=== PATIENT | female | born 1960 | race Caucasian/White ===

== ENCOUNTER 2016-08-26 06:26 | Observation (INO) | payer BC ==
[~2016-08-26] VITALS: Ht 177.8 cm; Wt 115.3 kg
[2016-08-26] VITALS (11 sets, daily range): BP systolic 110–127; BP diastolic 67–80
[2016-08-26] MEDS ORDERED: LOSA1TAB16 PO (06:44)
[2016-08-26] MEDS ORDERED: FLUT9.9S NS (06:45)
[2016-08-26] MEDS ORDERED: BUDE10.2 IH (06:45)
[2016-08-26] MEDS ORDERED: OMEP20TA63 PO (06:45)
[2016-08-26] MEDS ORDERED: IV RINGERS,LACTATED 1000ML 1,000 ML IV SCH ×2 (07:00→10:30)
[2016-08-26] MEDS ORDERED: fentaNYL PF VIAL 100 MCG/2 ML VIAL IV PRN (07:00)
[2016-08-26] MEDS ORDERED: PROCHLORPERAZINE 10 MG/2 ML VIAL. IV PRN (07:00)
[2016-08-26] MEDS ORDERED: HYDROmorphone 2 MG/ML VIAL IV PRN (07:00)
[2016-08-26] MEDS ORDERED: ONDANSETRON PF 4 MG/2 ML VIAL. IV PRN ×2 (07:00→09:45)
[2016-08-26] MEDS ORDERED: MORPHINE SULFATE 2 MG/ML DISP.SYRIN. IV PRN (07:00)
[2016-08-26] MEDS ORDERED: LIDOCAINE 1% 1 ML SYRINGE. ID PRN (07:00)
[2016-08-26] MEDS ORDERED: BUPIVACAINE-EPI 0.5%-1:200000 50 ML VIAL. ONE (07:16)
[2016-08-26] MEDS ORDERED: PROPOFOL 20 ML IV ONE (07:29)
[2016-08-26] MEDS ORDERED: LIDOCAINE 2% PF Vial for OR 5 ML VIAL. ONE (07:29)
[2016-08-26] MEDS ORDERED: MIDAZOLAM HCL/PF 2 MG/2 ML VIAL. ONE (07:29)
[2016-08-26] MEDS ORDERED: DESFLURANE 61 TO 120 MINUTES IH ONE (07:29)
[2016-08-26] MEDS ORDERED: DEXAMETHASONE SOD PHOS 20 MG/5 ML VIAL. ONE (07:29)
[2016-08-26] MEDS ORDERED: ONDANSETRON PF 4 MG/2 ML VIAL. ONE (07:29)
[2016-08-26] MEDS ORDERED: ROCURONIUM 50 MG/5 ML VIAL. ONE (07:30)
[2016-08-26] MEDS ORDERED: fentaNYL PF VIAL 100 MCG/2 ML VIAL ONE (07:30)
--- NOTE | 2016-08-26 07:43 | PDOC ---
SURGICAL PROGRESS NOTE Subjective 56 yo F with recurrent VIH TO OR for repair R/B/A d/w pt. Office note H&P reviewed and unchanged. Vital Signs Vital Signs Date Time Temp Pulse Resp B/P (MAP) Pulse Ox O2 Delivery O2 Flow Rate FiO2 08/26/16 06:53 98.1 85 96 98.1 08/26/16 06:50 20 150/89 Room Air ANNETTE NEVAREZ MD August 26, 2016 07:43
[2016-08-26] MEDS ORDERED: KETOROLAC 30 MG/ML INJ FOR OR. INJ ONE (08:36)
[2016-08-26] MEDS: fentaNYL PF VIAL 100 MCG/2 ML VIAL IV PRN ×2 (09:31→09:40)
[2016-08-26] MEDS ORDERED: 0.9 % SODIUM CHLORIDE 10 ML DISP.SYRIN. IV PRN (09:45)
--- NOTE | 2016-08-26 09:45 | PDOC ---
BRIEF OPERATIVE NOTE Pre-Op Diagnosis VIH Post-Op Diagnosis same Procedure Performed VIH repair Surgeon Axel Anesthesia Type: General, Local Blood Loss 10 IV Fluid 800 Specimens Obtained hernia sac Findings no viscera involved Complications none Additional Remarks [id number] ANNETTE NEVAREZ MD August 26, 2016 09:45
--- NOTE | 2016-08-26 10:45 | OP ---
DATE OF SURGERY: 08/26/2016 REFERRING PHYSICIANS: Dr. Yoni Calix. Thank you for the consult. PREOPERATIVE DIAGNOSIS: Ventral incisional hernia. POSTOPERATIVE DIAGNOSIS: Ventral incisional hernia. PROCEDURE: Ventral incisional hernia repair. SURGEON: Jr Nevarez MD ESTIMATED BLOOD LOSS: 10 mL. FLUIDS: 800 mL. COMPLICATIONS: None. FINDINGS: Ventral incisional hernia in the epigastric area associated with the previous transverse incision, complete disruption of the mesh, no viscera involved. INDICATIONS: A 56-year-old female who presents with complaints of recurrent ventral incisional hernia with abdominal pain and bulge. She denies any obvious obstructive symptoms but certainly notes some pain in this area. She has had previous incisional hernia repair with mesh. Given her pain, surgical repair is indicated. The patient was informed of the risks, benefits, and alternatives of procedure, risks including but not limited to bleeding, infection, damage to surrounding structures, risk of anesthesia, risk of hernia recurrence, mesh will not be used secondary to the risk of associated complications. Her history of lung disease and obesity does make risk of recurrence higher, as well as previous repair. The patient appears to understand. Her insightful questions were answered, and she agrees to proceed. DESCRIPTION OF PROCEDURE: After obtaining informed consent, the patient was taken to the Operating Room, induced under general endotracheal anesthetic. The patient was prepped and draped in the usual fashion in the anterior abdominal wall. The hernia was palpable. A transverse incision was made overlying this using electrocautery. The previous scar had been excised. Subcutaneous tissue was divided with electrocautery. Hernia sac was dissected down to the level of fascia circumferentially. The hernia sac was sharply opened and completely excised. There was a component of mesh that was completely disrupted and contained within the mesh hernia. The hernia sac was excised and sent to Pathology for evaluation. The underlying viscera was completely unremarkable. There was no evidence of bowel injury, and the contents were primarily omentum. The fascia was cleared off circumferentially for a few centimeters. The fascia was then reapproximated in a transverse [id number] fashion using multiple interrupted 0 Vicryl stitches. A 0.5% Marcaine with epinephrine was injected in the surrounding tissues. Subcutaneous tissue was reapproximated with 3-0 Vicryl in 2 layers. Skin incision was reapproximated with 4-0 Monocryl in subcuticular fashion. Sterile dressing was placed over all wounds. The patient tolerated the procedure well and was discharged to Recovery Room in stable condition. All counts were correct. There were no immediate complications. JR NEVAREZ MD DR: ASIA/norris JOB#: [id number] / [id number] Dr. Yoni Rocha
[2016-08-26] MEDS: HYDROcodone/APAP 5/325MG 1 TAB TABLET PO PRN ×2 (11:40→16:21)
[2016-08-26] MEDS: ALBUTEROL SULFATE 2.5 MG/3 ML NEBU. NEB SCH ×3 (12:00→19:25)
[2016-08-26] MEDS: LOSARTAN POTASSIUM 50 MG TABLET. PO SCH (12:30)
[2016-08-26] MEDS: hydroCHLOROthiazide 12.5 MG CAPSULE PO SCH (12:30)
[2016-08-26] MEDS: FLUTICASONE 50MCG/NASAL SPRAY 16GM BOTTLE. NS SCH (12:30)
[2016-08-26] MEDS: PANTOPRAZOLE 40 MG TABLET.DR. PO SCH (13:13)
[2016-08-26] MEDS: MORPHINE SULFATE 2 MG/ML DISP.SYRIN. IV PRN ×2 (18:44→23:27)
[2016-08-26] MEDS: BUDESONIDE 0.5 MG/2 ML NEBU. NEB SCH (19:25)
[2016-08-26] MEDS: DOCUSATE SODIUM 100 MG CAPSULE. PO SCH (20:46)
[2016-08-26] MEDS ORDERED: NON FORMULARY ITEM (Budesonide/Formoterol Fumarate (Symbicort 160-4.5 Mcg Inhaler) 2 PUFF) IH SCH (21:00)
[2016-08-27 03:00] VITALS: BP 117/74
[2016-08-27] MEDS: MORPHINE SULFATE 2 MG/ML DISP.SYRIN. IV PRN ×2 (04:59→09:14)
[2016-08-27 07:00] VITALS: BP 112/76
[2016-08-27] MEDS: BUDESONIDE 0.5 MG/2 ML NEBU. NEB SCH (07:58)
[2016-08-27] MEDS: ALBUTEROL SULFATE 2.5 MG/3 ML NEBU. NEB SCH ×2 (07:58→11:47)
[2016-08-27] MEDS ORDERED: ENOXAPARIN 40 MG/0.4 ML SYRINGE. SQ SCH (09:00)
[2016-08-27] MEDS ORDERED: NON FORMULARY ITEM (Losartan/Hydrochlorothiazide (Losartan-Hctz 50-12.5 Mg Tab) 1 TAB) PO SCH (09:00)
[2016-08-27] MEDS: hydroCHLOROthiazide 12.5 MG CAPSULE PO SCH (09:09)
[2016-08-27] MEDS: LOSARTAN POTASSIUM 50 MG TABLET. PO SCH (09:09)
[2016-08-27] MEDS: PANTOPRAZOLE 40 MG TABLET.DR. PO SCH (09:09)
[2016-08-27] MEDS: DOCUSATE SODIUM 100 MG CAPSULE. PO SCH (09:09)
[2016-08-27] MEDS: FLUTICASONE 50MCG/NASAL SPRAY 16GM BOTTLE. NS SCH (09:10)
--- NOTE | 2016-08-27 09:50 | PDOC ---
SURGICAL PROGRESS NOTE Subjective tolerating diet ambulating pain managed no nausea Vital Signs Vital Signs Date Time Temp Pulse Resp B/P (MAP) Pulse Ox O2 Delivery O2 Flow Rate FiO2 08/27/16 09:14 Nasal Cannula 08/27/16 09:09 70 112/76 08/27/16 07:35 92 2.0 08/27/16 07:00 98.2 18 98.2 I&O Intake and Output 08/27/16 07:00 Intake Total 1350 ml Output Total 950 ml Balance 400 ml Intake Oral 300 ml IV Total 1050 ml Output Urine Total 950 ml # Voids 4 General: Alert, Oriented X3, Cooperative, No acute distress Abdomen: Soft, Other (ND, incision c/d/i, no erythema) Assessment/Plan s/p VIH dc 02 plan home today Problems: ANI ARVIZU APRN August 27, 2016 09:50
[2016-08-27] MEDS ORDERED: OXYC-323 PO (09:53)
[2016-08-27 11:00] VITALS: BP 114/62
--- NOTE | 2016-08-27 13:07 | PDOC3 ---
Discharge Summary* Date of Admission: August 26, 2016 Date of Discharge: August 27, 2016 Admitting Diagnosis Ventral hernia Final Diagnosis Ventral hernia CONSULTS none Procedures Ventral hernia repair Brief Hospital Course Ms. Galvez is a 56 old female who presented with hernia and underwent repair. Postoperatively tolerating diet, ambulating, urinating and pain managed on oral medications. Ready for discharge home Disposition/Orders: D/C to Home CONDITION AT DISCHARGE: Stable Diet: Regular Scheduled Budesonide/Formoterol Fumarate (Symbicort 160-4.5 Mcg Inhaler), 2 PUFF IH BID, ( Reported) Fluticasone Propionate (Flonase Allergy Relief), 2 SPRAYS NS DAILY, (Reported) Losartan/Hydrochlorothiazide (Losartan-Hctz 50-12.5 Mg Tab), 1 TAB PO DAILY, ( Reported) Omeprazole Magnesium (Prilosec Otc), 1 TAB PO DAILY, (Reported) Oxycodone/Apap 5-325 (Percocet 5-325 Mg Tablet), 1-2 TAB PO Q4-6HRS FOLLOW UP APPOINTMENT: 2 weeks Time Spent Total time spent with patient [] minutes for coordination of care, counseling, and education. ANI ARVIZU APRN August 27, 2016 13:07
[2016-08-27] MEDS: HYDROcodone/APAP 5/325MG 1 TAB TABLET PO PRN (13:10)
--- NOTE | 2016-08-28 15:45 | PATHOLOGY ---
PATHOLOGY REPORT * * * * * * * * FINAL DIAGNOSIS: Segment of fibromembranous and fibroadipose tissue, ventral incisional hernia repair: - Hernia sac. REPORT ELECTRONICALLY SIGNED BY: Jesse Botello M.D. DATE/TIME: 08/28/2016 15:45 * * * * * * * * GROSS PATHOLOGY: Received in formalin labeled "Stephanie Galvez hernia sac," is a segment of fibroadipose tissue measuring 11.2 x 6.1 x 3.4 cm with attached white-brown mesh measuring 6.3 x 5.5 x 0.2 cm (which is encased in adipose tissue). No nodules or lesions are identified. Data Examination Clerk tissue is submitted in cassette A1. (CAA; 08/27/2016) INITIAL CPT CODE(S): A; 27771 Professional services performed [place] [email or web address] [place] [address] Technical services performed by [facility] at [address] [place] [address]. SPECIMEN(S) RECEIVED: A.Hernia sac CLINICAL HISTORY: Ventral incisional hernia PATIENT: STEPHANIE GALVEZ /AGE: 306/27/1960 (Age: 56) PATIENT #: [id number] ALT CASE #: SPECIMEN COLLECTION DATE: 08/26/2016 SPECIMEN RECEIVED DATE: 08/26/2016 [facility] - [address] [place] [address] - PHONE: [phone] * * * END OF REPORT * * *
== END 2016-08-27 13:05 | disposition home or self-care (01) ==
LOC: SURG 06:26 → 4 NORTH 09:30
PROVIDERS: ADMIT Surgery; ATTEND Surgery
DX: K43.2 Incisional hernia without obstruction or gangrene (principal)
CPT/HCPCS: 49560; 88302; 94640; 94760; 96372; 96374; 96376; 97116; 97161; G0378; G0379; G8978; G8979; G8980; J0690; J1100; J1650; J1885; J2250; J2270; J2405; J2704; J3010; J7120

== ENCOUNTER → 2017-02-05 | Outpatient (CLI) | payer BC ==
[~2017-02-05] MED LIST: BUDE10.2 IH; FLUT9.9S NS; LOSA1TAB19 PO; OMEP20TA63 PO; OXYC-323 PO
--- NOTE | 2017-02-05 11:12 | RAD ---
DATE: 02/05/2017. EXAM: DIGITAL SCREEN BILAT W/CAD. HISTORY: Routine mammographic screening. COMPARISON: 11/28/2015. This study was interpreted with the benefit of Computerized Aided Detection (CAD). FINDINGS: The breast parenchyma shows scattered fibroglandular densities. Breast parenchyma level B.. There are no suspicious masses, microcalcifications or architectural distortion. Small nodules bilaterally have stable correlates on prior studies or have decreased. Scattered coarse calcifications are benign. BI-RADS CATEGORY: 2 BENIGN FINDING(S). RECOMMENDED FOLLOW-UP: 12M 12 MONTH FOLLOW-UP. PQRS compliance statement: Patient information was entered into a reminder system with a target due date 02/05/2018 for the next mammogram. Mammography is a sensitive method for finding small breast cancers, but it does not detect them all and is not a substitute for careful clinical examination. A negative mammogram does not negate a clinically suspicious finding and should not result in delay in biopsying a clinically suspicious abnormality. "Our facility is accredited by the [employer] Mammography Program."
== END | disposition home or self-care (01) ==
LOC: MAMMO 09:31
PROVIDERS: ATTEND Family Medicine
DX: Z12.31 Encounter for screening mammogram for malignant neoplasm of breast (principal)
CPT/HCPCS: G0202; 77067

== ENCOUNTER → 2018-02-24 | Outpatient (CLI) | payer BC ==
[~2018-02-24] MED LIST changes: -OXYC-323 PO; +OXYC1TAB15 PO
--- NOTE | 2018-02-25 08:44 | RAD ---
DATE: 02/24/2018 EXAM: MAMMO LAMAR SCREENING BILATERAL HISTORY: Routine screening COMPARISON: 02/15/2017 This study was interpreted with the benefit of Computerized Aided Detection (CAD). Breast Density: SCATTERED The breast parenchyma shows scattered fibroglandular densities. Breast parenchyma level B. FINDINGS: 2-D and 3-D tomosynthesis imaging was performed in CC and MLO projections. There are several small smooth nodules in both breasts, better demonstrated on the current tomosynthesis images. No enlarging nodule or spiculated mass is seen. There are scattered benign type calcifications. No suspicious microcalcifications have developed. IMPRESSION: Stable mammograms without evidence of malignancy. BI-RADS CATEGORY: 2 BENIGN FINDING(S) RECOMMENDED FOLLOW-UP: 12M 12 MONTH FOLLOW-UP PQRS compliance statement: Patient information was entered into a reminder system with a target due date for the next mammogram. Mammography is a sensitive method for finding small breast cancers, but it does not detect them all and is not a substitute for careful clinical examination. A negative mammogram does not negate a clinically suspicious finding and should not result in delay in biopsying a clinically suspicious abnormality. "Our facility is accredited by the [employer] Mammography Program."
== END | disposition home or self-care (01) ==
LOC: MAMMO 10:14
PROVIDERS: ATTEND Family Medicine
DX: Z12.31 Encounter for screening mammogram for malignant neoplasm of breast (principal)
CPT/HCPCS: 77063; 77067

== ENCOUNTER → 2019-03-02 | Outpatient (CLI) | payer BC ==
--- NOTE | 2019-03-03 10:25 | RAD ---
DATE: March 02, 2019 EXAM: DIGITAL SCREEN BILAT W/CAD HISTORY: Screening study. COMPARISON: 2015 through 2018 This study was interpreted with the benefit of Computerized Aided Detection (CAD). FINDINGS: Breast Density: SCATTERED The breast parenchyma shows scattered fibroglandular densities. Breast parenchyma level B.. Bilateral breast nodules are unchanged. There are no new dominant suspicious masses, suspicious microcalcifications or evidence of architectural distortion. IMPRESSION: No mammographic indicators for malignancy. BI-RADS CATEGORY: 2 BENIGN FINDING RECOMMENDED FOLLOW-UP: 12M 12 MONTH FOLLOW-UP PQRS compliance statement: Patient information was entered into a reminder system with a target due date March 03, 2020 for the next mammogram. Mammography is a sensitive method for finding small breast cancers, but it does not detect them all and is not a substitute for careful clinical examination. A negative mammogram does not negate a clinically suspicious finding and should not result in delay in biopsying a clinically suspicious abnormality. "Our facility is accredited by the [employer] Mammography Program." The patient's breast density may affect the ability of mammography to detect breast cancer. There are 4 categories of breast density, A, B, C and D. Breast density A means that most of the breast tissue is replaced with adipose tissue and therefore is not dense. Breast density B means that the breast tissue is mildly dense and scattered. Breast density C means that the breast tissue is heterogeneously dense. Breast density D means that the breast tissue is very dense. Breast densities especially C and D may decrease the sensitivity of mammography to detect breast cancer. Therefore, the patient may benefit from 3-D breast mammography (3D breast tomography) as a part of their screening mammogram. Insurance may or may not pay for this additional imaging. The patient's breast density based on today's mammogram is category B.
== END | disposition home or self-care (01) ==
LOC: MAMMO 15:19
PROVIDERS: ATTEND Family Medicine
DX: Z12.31 Encounter for screening mammogram for malignant neoplasm of breast (principal); N63.20 Unspecified lump in the left breast, unspecified quadrant; N63.10 Unspecified lump in the right breast, unspecified quadrant
CPT/HCPCS: 77067

== ENCOUNTER → 2019-05-03 | Outpatient (CLI) | payer BC, OTHER ==
--- NOTE | 2019-05-04 10:58 | KCIC ---
CT study of the chest without contrast Clinical indications: Lung cancer screening. History of smoking for 31 years and 1.5 packs per day. COPD. COMPARISON: November 21, 2014. TECHNIQUE: Noncontrast helical CT scanning of the chest was performed. PQRS compliance Statement One or more of the following individualized dose reduction techniques were utilized for this study: 1. Automated exposure control 2. Adjustment of the mA and/or kV according to patient size 3. Use of iterative reconstruction technique FINDINGS: No enlarged thoracic lymphadenopathy is evident. No focal aneurysmal dilatation of the thoracic aorta is seen. Calcified atheromatous disease of the coronary arteries is seen. The heart size is normal and no pericardial effusion is seen. Small hiatal hernia is evident. No adrenal mass is seen. Chronic linear scarring is seen within the anterior aspect of the left upper lobe. There is a new finding of mild linear atelectasis or scarring within the left lung base. There is new finding of mild linear atelectasis or scarring within the medial right lung base. No lung consolidation with air bronchograms is seen. No lung mass is evident. No new lung nodule is seen. No pleural effusion or pneumothorax is seen. The proximal bronchial tree is patent. No lytic process is seen. IMPRESSION: No lung mass or new lung nodule is evident. New bibasilar linear atelectasis or scarring. Lung RADS category 1. Recommend annual screening chest CT in 12 months. Calcified atheromatous disease of the coronary arteries. Normal heart size. Electronically signed by: Petros Hess MD (05/04/2019 10:54 AM) [id number]
== END | disposition home or self-care (01) ==
LOC: KCIC CT 11:12
PROVIDERS: ATTEND Physician Assistant Medical
DX: Z12.2 Encounter for screening for malignant neoplasm of respiratory organs (principal); I25.10 Atherosclerotic heart disease of native coronary artery without angina pectoris; K44.9 Diaphragmatic hernia without obstruction or gangrene; J98.4 Other disorders of lung
CPT/HCPCS: G0297

== ENCOUNTER → 2019-05-03 | Outpatient (CLI) | payer OTHER ==
--- NOTE | 2019-05-03 18:14 | KCIC ---
Sacrum and coccyx 2 views INDICATION: Acute midline low back pain FINDINGS: Osteopenia. No displaced fracture. Sacroiliac joints and pubic symphysis are not diastatic. Soft tissues are unremarkable. IMPRESSION: Osteopenia. No acute fracture shown by plain film in the sacrum or coccyx. Electronically signed by: Isaak Edward MD (05/03/2019 6:11 PM) [facility]
--- NOTE | 2019-05-03 18:20 | KCIC ---
L spine 5 views INDICATION: Acute midline low back pain without sciatica. COMPARISON: Sacrum and coccyx x-rays of same day. FINDINGS: Standing AP, standing bilateral oblique, standing lateral and standing coned-down lateral views of the lumbar spine were obtained. These show 5 lumbar type vertebrae with anatomic alignment. The bones show mild demineralization and a superior endplate compression deformity at L1 with mild, 10-20 percent loss of height. There is no posterior cortical buckling demonstrated by x-ray. Multilevel facet hypertrophic changes are also present throughout the lumbar spine. The soft tissues show cholecystectomy clips and arterial calcifications in the abdominal aorta. Significant bony foraminal stenosis or central canal stenosis is not shown on this exam. IMPRESSION: Multilevel lumbar spinal degenerative spondylosis with an age-indeterminate, but likely chronic superior endplate compression fracture at L1 without listhesis. Further imaging for acuity of findings could be pursued if clinically warranted with MRI. Electronically signed by: Isaak Edward MD (05/03/2019 6:17 PM) [facility]
== END | disposition home or self-care (01) ==
LOC: KCIC 11:16
PROVIDERS: ATTEND Physician Assistant Medical
DX: M47.816 Spondylosis without myelopathy or radiculopathy, lumbar region (principal); M85.88 Other specified disorders of bone density and structure, other site; I70.0 Atherosclerosis of aorta; M43.8X6 Other specified deforming dorsopathies, lumbar region; Z87.891 Personal history of nicotine dependence; Z90.49 Acquired absence of other specified parts of digestive tract
CPT/HCPCS: 72110; 72220

== ENCOUNTER → 2019-05-10 | Outpatient (CLI) | payer OTHER ==
--- NOTE | 2019-05-10 15:24 | KCIC ---
MRI Lumbar Spine without contrast History: Acute midline low back pain Technique: Multiplanar, multi sequential noncontrast MR imaging was performed of the lumbar spine. Comparison: None Findings: There is recent, superior L1 vertebral body fracture with associated marrow edema signified by STIR hyperintense and T1 hypointense signal, negligible osseous retropulsion superiorly without spinal stenosis. There is negligible anterior spondylolisthesis at L3-4. There is mild disc desiccation L3-4 and L4-5 and to lesser degree at L2-3. Conus terminates near the mid aspect of L1. T12-L1: Spinal canal and the neural foramina are adequate. L1-L2: Neural foramina and spinal canal adequate. L2-L3: There is mild facet degenerative change. Spinal canal and neural foramina are adequate. L3-L4: There is mild facet hypertrophic change greater on the right. Minimal disc osteophyte complex is near the undersurfaces of the exiting L3 nerve roots bilaterally without displacement, neural foramina not significantly narrowed. Spinal canal is overall adequate. L4-L5: There is mild facet degenerative change. Neural foramina and spinal canal are adequate. L5-S1: There is mild facet degenerative change. Spinal canal and neural foramina are adequate. Impression: 1. There is recent L1 vertebral body fracture with associated marrow edema, negligible osseous retropulsion superiorly without spinal stenosis. 2. There is no significant lumbar spinal stenosis or neural foramina compromise. 3. There is multilevel facet degenerative change, negligible anterior spondylolisthesis at L3-4. Electronically signed by: Oscar Hope MD (05/10/2019 3:02 PM) [id number]
== END | disposition home or self-care (01) ==
LOC: KCIC MRI 13:37
PROVIDERS: ATTEND Physician Assistant Medical
DX: S32.010A Wedge compression fracture of first lumbar vertebra, initial encounter for closed fracture (principal); M89.38 Hypertrophy of bone, other site; M25.78 Osteophyte, vertebrae; M47.817 Spondylosis without myelopathy or radiculopathy, lumbosacral region; X58.XXXA Exposure to other specified factors, initial encounter; Y93.89 Activity, other specified; Y92.89 Other specified places as the place of occurrence of the external cause; Y99.8 Other external cause status
CPT/HCPCS: 72148

== ENCOUNTER 2019-05-23 06:53 | Outpatient (CLI) | payer OTHER ==
[2019-05-23] VITALS (10 sets, daily range): BP systolic 94–137; BP diastolic 63–87
[~2019-05-23] VITALS: Ht 177.8 cm; Wt 113.4 kg
[2019-05-23 07:39] LABS: BASO # 0.1 x10^3/uL (0.0-0.2); BASO % 1 % (0-3); EOS # 0.2 x10^3/uL (0.0-0.7); EOS % 4 % (0-3); HEMATOCRIT 39.1 % (36.0-47.0); LYMPH # 2.9 x10^3/uL (1.0-4.8); LYMPH % 46 % (24-48); MEAN CORPUSCULAR HEMOGLOBIN 33 pg (25-35); MEAN CORPUSCULAR HGB CONC 33 g/dL (31-37); MEAN CORPUSCULAR VOLUME 100 fL (79-100); MONO # 0.4 x10^3/uL (0.0-1.1); MONO % 7 % (0-9); NEUT # 2.6 x10^3/uL (1.8-7.7); NEUT % 42 % (31-73); PLATELET COUNT 339 x10^3/uL (140-400); RED BLOOD COUNT 3.92 x10^6/uL (3.50-5.40); RED CELL DISTRIBUTION WIDTH 13.2 % (11.5-14.5); WHITE BLOOD COUNT 6.2 x10^3/uL (4.0-11.0)
[2019-05-23] MEDS ORDERED: LIDOCAINE WITH 8.4% SOD BICARB 3 ML DISP.SYRIN. ONE (08:29)
[2019-05-23] MEDS ORDERED: IOHEXOL 240 MG/ML 50ML VIAL. ONE (08:29)
[2019-05-23] MEDS ORDERED: CYCL10TA2 PO (08:33)
[2019-05-23] MEDS ORDERED: NAPR-514 PO (08:33)
[2019-05-23] MEDS ORDERED: MIDAZOLAM HCL/PF 2 MG/2 ML VIAL. IV ONE (08:45)
[2019-05-23] MEDS ORDERED: LIDOCAINE WITH 8.4% SOD BICARB 3 ML DISP.SYRIN. IJ ONE (08:45)
[2019-05-23] MEDS ORDERED: fentaNYL PF VIAL 100 MCG/2 ML VIAL IV ONE (08:45)
[2019-05-23] MEDS ORDERED: IOHEXOL 240 MG/ML 50ML VIAL. IJ ONE (08:45)
[2019-05-23] MEDS ORDERED: fentaNYL PF VIAL 100 MCG/2 ML VIAL ONE ×2 (08:54→09:35)
[2019-05-23] MEDS ORDERED: MIDAZOLAM HCL/PF 2 MG/2 ML VIAL. ONE ×2 (08:54→09:35)
[2019-05-23] MEDS ORDERED: CONTRAST GIVEN. MC PRN (09:00)
--- NOTE | 2019-05-23 09:55 | PDOC ---
MODERATE SEDATION ASSESSMENT RISKS/ALTERNATIVES Risks/Alternatives Risks and alternatives of this type of sedation and procedure discussed with: RISK/ALTERNATIVES: Patient H & P ON CHART H & P H & P on chart and reviewed for co-morbid conditions and appropriate labs. H&P ON CHART: Yes STATUS PREG STATUS ASSESSED: Yes MEDS/ALLERGIES REVIEWED Meds/Allergies Reviewed Medications and Allergies including time and route of recently administered narcotics and sedatives. MEDS/ALLERGIES REVIEWED: Yes ASA RATING ASA RATING: II AIRWAY ASSESSMENT Airway Assessment Airway patency, oral function limitations, presence of caps, crowns, dentures, partials, and ability to extend neck assessed. AIRWAY ASSESSMENT: Yes MALLAMPATI SCORE MALLAMPATI SCORE: II PRE-SEDATION ASSESSMENT PRE-SEDATION ASSESSMENT: Yes WENDIE HAJI MD May 23, 2019 09:55
--- NOTE | 2019-05-23 09:55 | PDOC ---
BRIEF OPERATIVE NOTE Pre-Op Diagnosis Acute debilitating compression fracture of L1 Post-Op Diagnosis same Procedure Performed L1 kyphoplasty Surgeon Jeanne Anesthesia Type: Conscious Sedation Findings L1 kyphoplasty Complications No immediate WENDIE HAJI MD May 23, 2019 09:55
--- NOTE | 2019-05-23 10:07 | RAD ---
Procedure: Kyphoplasty of L1 Clinical Indication: 58-year-old female with acute debilitating wedge compression fracture of L1 from a fall. Sedation: Conscious sedation was administered with a total intraprocedural nnaj-yb-zmow time of 34 minutes. The patient was monitored by a qualified independent observer throughout the time of sedation. Please refer to the medical record for exact doses of medications utilized to achieve moderate sedation. Antibiotics: Antibiotic was administered intravenously within 1 hour of the procedure start time. Exposure: Kerma-Area Product: 65 Gycm2 Sterility: All elements of maximal sterile barrier technique including the use of a cap, mask, sterile gown, sterile gloves, large sterile sheet, appropriate hand hygiene, and 2% chlorhexidine for cutaneous antisepsis (or acceptable alternative antiseptic per current guidelines) were followed for this procedure. Consent: The procedure was explained in its entirety to the patient or the patients designated patient care representative by a member of the treatment team, including a discussion of the risks, benefits and commonly accepted alternatives to the procedure, as well as the expected consequences of no therapy whatsoever. Discussion of the risks included, but was not limited to, those that are most frequent and those that are rare but possibly severe or life-threatening, as well as the possibility of unforeseen complications. Technique and Findings: Following informed consent, the patient was prepped and draped in usual sterile fashion. Preliminary fluoroscopic spot view of the spine was performed. 1% lidocaine was used to achieve local anesthesia over the right paraspinal soft tissues at L1. A small dermatotomy was made. Under fluoroscopic guidance, a 10-gauge kyphoplasty needle was advanced in a right transpedicular fashion to the anterior one third of the L1 vertebral body. A balloon was then used to create a cavity, and polymethylmethacrylate was instilled under fluoroscopic guidance to fill the interstices of the bone. The needle was then removed and hemostasis was achieved with manual compression. Complications: No immediate Impression: 1. Fluoroscopic guided L1 kyphoplasty as described.
--- NOTE | 2019-05-23 12:28 | NUR ---
Discharge Note: MIGEL WILLIAM Discharge instructions and discharge home medications reviewed with Patient and a copy given. All questions have been answered and understanding verbalized. The following instructions and handouts were given: Post moderate sedation and vertebral plasty after care. Discontinued lines and drains: Right hand IV dc'd and tip intact. Patient discharged to home with via car.
== END 2019-05-23 12:32 | disposition home or self-care (01) ==
LOC: INTRAD 06:53
PROVIDERS: ATTEND Physician Assistant Medical
DX: M48.56XA Collapsed vertebra, not elsewhere classified, lumbar region, initial encounter for fracture (principal); Z79.01 Long term (current) use of anticoagulants
CPT/HCPCS: 22514; 36415; 85025; 85610; 99152; J0696; J2250; J3010; Q9966

== ENCOUNTER → 2020-08-14 | Outpatient (CLI) | payer BC, OTHER ==
[2019-05-23 12:00] VITALS: BP 118/72
[~2020-08-14] MED LIST changes: +CYCL10TA2 PO; +NAPR-514 PO
--- NOTE | 2020-08-14 15:19 | RAD ---
EXAM: Bilateral screening mammogram. HISTORY: 60-year-old female presents for screening mammography. TECHNIQUE: Full-field digital craniocaudal and mediolateral oblique views of both breasts are obtaine d for evaluation. Computer aided detection was applied. COMPARISON: 03/02/2019 BREAST PARENCHYMAL DENSITY: Level B - Scattered fibroglandular densities. FINDINGS: There is no new suspicious mass, microcalcification or region of architectural distortion. There are multiple stable areas of nodularity and nodular asymmetry within both breasts. There are mu ltiple benign calcifications. IMPRESSION: BI-RADS Category 2: Benign finding(s). RECOMMENDATION: Annual mammography is recommended. If your mammogram demonstrates that you have dense breast tissue, which could hide abnormalities, and if you have other risk factors for breast cancer that have been identified, you might benefit from s upplemental screening tests that may be suggested by your ordering physician. Dense breast tissue, i n and of itself, is a relatively common condition. This information is not provided to cause undue c oncern, but rather to raise your awareness and to promote discussion with your physician regarding th e presence of other risk factors, in addition to dense breast tissue. A report of your mammography re sults will be sent to you and your physician. You should contact your physician if you have any ques tions or concerns regarding this report. Mammography is a sensitive method for finding small breast cancers, but it does not detect them all a nd is not a substitute for careful clinical examination. A negative mammogram does not negate a clin ically suspicious finding and should not result in delay in biopsying a clinically suspicious abnorma lity. PQRS compliance statement - Patient information was entered into a reminder system with a target due date for the next mammogram. "Our facility is accredited by the [employer] Mammography Program." Electronically signed by: Shyla Condon MD (08/14/2020 3:17 PM) [id number]
== END ==
LOC: MAMMO 14:44
PROVIDERS: ATTEND Physician Assistant Medical
DX: Z12.31 Encounter for screening mammogram for malignant neoplasm of breast (principal)
CPT/HCPCS: 77067

== ENCOUNTER → 2020-11-15 | Outpatient (CLI) | payer BC ==
[2019-05-23 12:00] VITALS: BP 118/72
--- NOTE | 2020-11-15 18:14 | RAD ---
XR BILATERAL HIP (WITH OR WITHOUT PELVIS) 2 VIEWS_RIGHT History: Hip pain. Comparison: None. Technique: AP pelvis. Coned-down AP and frog-leg lateral views of the right hip. Findings: Osseous mineralization is normal. No fracture or dislocaton. The femoral acetabular joint space is re latively preserved. There are mild osteophytes. Mild degenerative changes of sacroiliac joints. The p ubic rami are intact. Soft tissues are unremarkable. Impression: 1. Mild degenerative changes of the right hip without acute osseous abnormality. Electronically signed by: Milton Moreau MD (11/15/2020 6:11 PM) [id number]
== END ==
LOC: RAD 12:28
PROVIDERS: ATTEND Physician Assistant Medical
DX: M16.11 Unilateral primary osteoarthritis, right hip (principal); M25.751 Osteophyte, right hip; M25.551 Pain in right hip
CPT/HCPCS: 73502

== ENCOUNTER → 2021-02-11 | Outpatient (CLI) | payer BC ==
[2019-05-23 12:00] VITALS: BP 118/72
[~2021-02-11] MED LIST changes: +CYCL10TA19 PO; -CYCL10TA2 PO
--- NOTE | 2021-02-11 14:08 | KCIC ---
EXAM: Lumbar spine MRI without contrast. HISTORY: L5 radiculopathy. TECHNIQUE: Multiplanar, multisequence magnetic resonance imaging of the lumbar spine was performed wi thout contrast. COMPARISON: 05/10/2019 FINDINGS: There is a chronic mild to moderate anterior wedge compression fracture with large superior endplate Schmorl's node and minimal retropulsion of the cortex at L1. The degree of compression is i ncreased compared to the prior MRI. No acute fracture is seen. There is mild multilevel endplate maria del carmen deling and disc desiccation. There is relative preservation of the disc space at L5-S1. There is 2 mm grade 1 anterolisthesis of L2 on L3 and L3 on L4 and L5 on S1. The conus terminates at T12-L1. At T12-L1, there is minimal retropulsion of the L1 cortex. There is no stenosis. At L1-L2, there is mild bilateral facet arthropathy. There is no stenosis. At L2-L3, there is endplate remodeling. There is mild right and mild to moderate left facet arthropat hy. There is minimal grade 1 anterolisthesis. There is no stenosis. At L3-L4, there is a disc bulge and endplate remodeling. There is mild to moderate right and mild lef t facet arthropathy. There is grade 1 anterolisthesis. There is minimal bilateral foraminal stenosis. At L4-L5, there is mild to moderate right and mild left facet arthropathy. There is no stenosis. At L5-S1, there is mild bilateral facet arthropathy. There is no stenosis. IMPRESSION: 1. Multiple level degenerative change involving the lumbar spine, described in detail above. There is minimal bilateral foraminal stenosis at L3-L4. 2. Chronic mild and moderate compression fracture at L1. The degree of compression is increased refugio red to the prior MRI. No acute or subacute fracture is seen. Electronically signed by: Shyla Condon MD (02/11/2021 2:05 PM) [id number]
== END ==
LOC: KCIC MRI 12:28
PROVIDERS: ATTEND Physician Assistant
DX: M47.27 Other spondylosis with radiculopathy, lumbosacral region (principal); M48.56XA Collapsed vertebra, not elsewhere classified, lumbar region, initial encounter for fracture; M48.061 Spinal stenosis, lumbar region without neurogenic claudication; M51.46 Schmorl's nodes, lumbar region
CPT/HCPCS: 72148

== ENCOUNTER → 2021-03-04 | Outpatient (CLI) | payer BC ==
[2019-05-23 12:00] VITALS: BP 118/72
[~2021-03-04] MED LIST changes: +IBUP-1060 PO; +TRAM50TA PO
--- NOTE | 2021-03-04 12:26 | PDOC1 ---
INITIAL PAIN CONSULT DATE OF SERVICE: DOS: DATE: 03/04/21 TIME: 12:20 CHIEF COMPLAINT: Chief Complaint: Low back and right lower extremity pain HISTORY OF PRESENT ILLNESS: 60-year-old female presents with history of pain low back right lower extremity for approximately 2 years after a fall at home which resulted in a L1 compression fracture which was eventually treated with kyphoplasty. Patient reports that she still has significant pain in the low back and radiating the right lower extremity now more than it did after her fall in the right leg posterior hip posterior lateral thigh lateral medial thigh mostly in the hip itself posteriorly as well as the low back bilaterally patient reports much more intense with time worse with standing walking especially being on her feet she cannot be active more than about 4 hours and she must sit down or lay down to try and decrease the pain patient has had physical therapy which was helpful initially but does not have any long-lasting improvement and she finished that 1 month ago patient is also doing the same exercises now at home also taking tramadol which is not been helpful she tried [id number] anti-inflammatori es Advil as well as Tylenol which is not been helpful as well patient reports it wakes her from sleep least 2-3 times a night does not affect her bowel bladder control or ability to walk but when she is standing it becomes much more painful and noticeable patient reports that sharp and throbbing and shooting in the back shooting the leg on the right side intermittent intensity but worse with walking standing burning aching in the back and legs well patient rates her disability rating 0-10 10 being the worst is a 3 with at home was possibilities recreation and 2 social activity 7 with occupational activity to his actuator 1 with self- care and 0 with life support activities. Patient reports over the course of the day the pain gets worse and worse and she is in a he is driving to multiple different companies and the driving for prolonged periods exacerbates her pain as well. Patient of MRI scan lumbar spine showing chronic mild to moderate compression fracture at L1 with multiple level degenerative change with minimal bilateral foraminal stenosis L3-4 disc bulge and endplate remodeling at the same level with mild to moderate right and mild left facet arthropathy L4-5 as well. PAST MEDICAL HISTORY: PMH: Hypertension, COPD, shortness of breath, gastroesophageal reflux PREVIOUS SURGERIES: Past Surgical Hx: Kyphoplasty April 2019 hernia repair tonsillectomy hiatal hernia repair 2007 also 2017 left foot surgery and surgical mesh revision 2010 CURRENT MEDICATIONS: Current Meds: Active Scripts Medications Dose Route/Sig Max Daily Dose Days Date Category Ibuprofen 800 Mg Tablet 800 Mg PO PRN Q6HRS PRN 03/04/21 Reported Tramadol Hcl 50 Mg Tablet 50 Mg PO DAILY PRN 03/04/21 Reported Prilosec Otc (Omeprazole Magnesium) 20 Mg Tablet.dr 1 Tab PO DAILY 08/26/16 Reported Losartan-Hctz 50-12.5 Mg Tab (Losartan/Hydrochlorothiazide) 1 Each Tablet 1 Tab PO DAILY 08/26/16 Reported ALLERGIES; Allergies: Coded Allergies: No Known Drug Allergies (Unverified , 08/26/16) FAMILY HISTORY: Family Hx: Cancer, heart disease SOCIAL HISTORY: Social Hx: Patient drinks alcohol about 2 glasses of wine twice a week does not smoke quit 20 years ago does not use any illegal illicit recreational drugs is lives with her spouse of locally in [facility] and 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 REVIEW OF SYSTEMS: ROS: Positive for those items mentioned in history of present illness, all systems are reviewed, otherwise negative ,and are complete full and well-documented on patient's chart. PHYSICAL EXAM: VS: Blood pressure is 174/94 pulse 81 respirations 16 temperature 98.2 F height is 5 feet 9 inches weight is 238 pounds PE: PHYSICAL EXAMINATION: GENERAL: The patient is awake, alert, oriented, appropriate, very pleasant in demeanor HEENT: Shows normocephalic, atraumatic. Extraocular movements are intact and symmetrical. Oral cavity: Mucous membranes moist and pink. Dentition is intact. NECK: Shows anterior throat supple without palpable lymphadenopathy noted. Swallow reflex symmetrical. CHEST: Shows normal on inspection. Breath sounds are clear bilaterally, distant but no rales or rhonchi. HEART: Shows S1, S2 clear. No murmurs auscultated. ABDOMEN: Soft, nontender, nondistended, obese. No palpable organomegaly is noted. BACK: Shows spine grossly in the midline. Normal-appearing cervical lordotic curvature. There is mildly increased thoracic kyphosis, some flattening of the lumbar lordotic curvature. Lumbar paraspinous muscles show symmetrical on inspection, on palpation shows some moderate tenderness diffusely throughout the upper, middle and lower distribution of the paraspinous muscles bilaterally and also into the lower thoracic paraspinous musculature, firm and tender, but without specific trigger points, without radiation of pain. The patient has good rotational motion of the lumbar spine, both laterally as well as extension and flexion with some moderate tenderness with extension as well as far right lateral rotation but not left and forward flexion is performed at 45 degrees without difficulty. No tenderness over the spinous processes, sacrum or sacroiliac regions. EXTREMITIES: Lower extremities show deep tendon reflexes 2+ in the patellar and tendo calcaneus tendons. Motor exam is 4 on a scale of 5 with right dorsiflexion, extension, quadriceps and hamstring flexion and 5/5 on the left. Peripheral pulses are 1 posterior tibial. No peripheral edema is noted bilaterally. Lower extremities are warm and dry to touch, equal in color and appearance. Straight leg raise noted to be positive on the right about 45 degrees, left side is negative. Gaenslen's and Yoav's maneuvers are negative bilaterally. SKIN: Shows warm and dry, good turgor. No edema. No sores, rashes or bruising throughout. IMPRESSION: Impression: 60-year-old female with approximate 2-year history of pain low back right lower extremity and radicular fashion following L4-5 dermatomal distribution. MRI scan lumbar spine as noted Hypertension Gastroesophageal reflux COPD Plan: Options were discussed with the patient including conservative management continued physical therapies interventional techniques. Patient like to pursue interventional techniques. We discussed a lumbar epidural steroid injection using descriptions as well as anatomical models described procedure. Patient will wait for preauthorization with her insurance provider, once obtained we will have her return for translaminar approach L4-5 level lumbar epidural steroid injection with fluoroscopic guidance. In the meantime, patient will continue with stretching streaky exercises she learned at physical therapy as well as oral analgesics as currently. ALVIN SARAVIA MD Mar 04, 2021 12:26
== END | disposition home or self-care (01) ==
LOC: PNCL 10:14
PROVIDERS: ATTEND Anesthesiology
DX: M54.50 Low back pain, unspecified (principal); M79.604 Pain in right leg; I10 Essential (primary) hypertension; J44.9 Chronic obstructive pulmonary disease, unspecified; K21.9 Gastro-esophageal reflux disease without esophagitis; E66.9 Obesity, unspecified; Z90.49 Acquired absence of other specified parts of digestive tract; Z90.710 Acquired absence of both cervix and uterus; Z98.890 Other specified postprocedural states; Z79.899 Other long term (current) drug therapy; Z87.891 Personal history of nicotine dependence
CPT/HCPCS: 99214; G0463

== ENCOUNTER → 2021-03-08 | Outpatient (CLI) | payer BC ==
[2019-05-23 12:00] VITALS: BP 118/72
[~2021-03-08] MED LIST changes: +IOHEXOL 180 MG/ML 10 ML VIAL. ONE; +methylPREDNISolone ACETATE 40 MG/ML VIAL. ONE; +methylPREDNISolone ACETATE 80 MG/ML VIAL. ONE
--- NOTE | 2021-03-08 10:42 | PDOC ---
Progress Note - Pain Clinic Date of Service: DOS: DATE: 03/08/21 TIME: 10:39 Diagnosis: Dx: Lumbar radiculopathy with lumbar degenerative disease History or Present Illness: HPI: 60-year-old female returns for follow-up status post initial evaluation and returns reporting pain in the low back more the right lower extremity than left posterior gluteus posterior lateral thigh lateral anterior thigh anteromedial thigh and across the back patient report is 8 on scale 10 is worst over this past week 6 on average/and is a 4 today patient report is worse with walking standing sitting performed. Patient did have an extended car ride over the past few days and the pain is increased patient reports is aching and sharp in the back burning stabbing shooting on and off in intensity better with sitting or laying down but is still waking her from sleep least once or twice a night patient reports no bowel or bladder incontinence no motor deficits but significant fatigability of the right lower extremity with walking and standing. Physical Exam: VS: Blood pressure is 149/94 pulse 72 respirations 18 temperature 98.1 F height is 5 foot 10 inches weight is 235 pounds PE: PHYSICAL EXAMINATION: GENERAL: The patient is awake, alert, oriented, appropriate, very pleasant in demeanor HEENT: Shows normocephalic, atraumatic. Extraocular movements are intact and symmetrical. Oral cavity: Mucous membranes moist and pink. Dentition is intact. NECK: Shows anterior throat supple without palpable lymphadenopathy noted. Swallow reflex symmetrical. CHEST: Shows normal on inspection. Breath sounds are clear bilaterally. HEART: Shows S1, S2 clear. No murmurs auscultated. ABDOMEN: Soft, nontender, nondistended. No palpable organomegaly is noted. BACK: Shows spine grossly in the midline. Normal-appearing cervical lordotic curvature. There is slightly increased thoracic kyphosis, some minor flattening of the lumbar lordotic curvature. Lumbar paraspinous muscles show symmetrical on inspection, on palpation shows some moderate tenderness diffusely throughout the upper, middle and lower distribution of the paraspinous muscles, but without specific trigger points, without radiation of pain. The patient has good rotational motion of the lumbar spine, both laterally as well as extension and flexion without significant difficulty. No tenderness over the spinous processes, sacrum or sacroiliac regions. EXTREMITIES: Lower extremities show deep tendon reflexes 2+ in the patellar and tendo calcaneus tendons. Motor exam is 4 on a scale of 5 with right dorsiflexion, extension, quadriceps and hamstring flexion and 5/5 on the left. Peripheral pulses are 1+ posterior tibial. No peripheral edema is noted bilaterally. Lower extremities are warm and dry to touch, equal in color and appearance. SKIN: Shows warm and dry, good turgor. No edema. No sores, rashes or bruising throughout. Procedure: Procedure: Options were discussed with the patient. Patient chart was reviewed as was her current medication regimen updated current view of systems updated today as well. We will proceed with a lumbar epidural steroid injection today with fluoroscopic guidance. Risks were discussed including but not limited to: Bleeding, infection, possibility of epidural hematoma and subsequent neurological compromise, dural puncture, headaches, spinal cord and/or nerve damage, side effects of steroid medication, and poor results regarding pain control. Patient understands and wished to proceed. Patient will return to the clinic in approximately 2 weeks for follow-up, was counseled return appointment, Activella, and side effect to be aware of. Medication Injected: Med Injected: Procedure is lumbar epidural steroid injection under local anesthetic using sterile prep and drape at the L4-5 level using C-arm fluoroscopic guidance in both AP and lateral views medications injected is 120 mg Depo-Medrol +10mL preservative-free normal saline and 2 mL contrast- condition at discharge is stable patient tolerated procedure well had no complications. Condition at Discharge: Condition at Discharge: Condition at discharge stable, patient tolerated procedure well and had no complications. ALVIN SARAVIA MD Mar 08, 2021 10:42
--- NOTE | 2021-03-08 10:43 | PDOC4 ---
Procedure Note: ICD 10 Code: ICD 10 Code: M54.16 M51.36 Procedure Note: Patient was consented for lumbar epidural steroid injection fluoroscopic guidance risks were discussed including but not limited to: Bleeding, infection, possibility of epidural hematoma and subsequent neurological compromise, dural puncture, headaches, spinal cord and/or nerve damage, side effects of steroid medication, and poor results regarding pain control. Patient understands and wished to proceed. Procedure is lumbar epidural steroid injection under local anesthetic using sterile prep and drape at the L4-5 level using C-arm fluoroscopic guidance in both AP and lateral views medications injected is 120 mg Depo-Medrol +10mL preservative-free normal saline and 2 mL contrast- condition at discharge is stable patient tolerated procedure well had no complications. ALVIN SARAVIA MD Mar 08, 2021 10:43
== END | disposition home or self-care (01) ==
LOC: PNCL 09:22
PROVIDERS: ATTEND Anesthesiology
DX: M51.16 Intervertebral disc disorders with radiculopathy, lumbar region (principal); I10 Essential (primary) hypertension; J44.9 Chronic obstructive pulmonary disease, unspecified; K21.9 Gastro-esophageal reflux disease without esophagitis; E66.9 Obesity, unspecified; Z90.49 Acquired absence of other specified parts of digestive tract; Z90.710 Acquired absence of both cervix and uterus; Z98.890 Other specified postprocedural states; Z87.891 Personal history of nicotine dependence; Z79.899 Other long term (current) drug therapy
CPT/HCPCS: 62323; J1030; J1040; Q9965

== ENCOUNTER → 2021-03-21 | Outpatient (CLI) | payer BC ==
[2019-05-23 12:00] VITALS: BP 118/72
[~2021-03-21] MED LIST changes: -IOHEXOL 180 MG/ML 10 ML VIAL. ONE; -methylPREDNISolone ACETATE 40 MG/ML VIAL. ONE; -methylPREDNISolone ACETATE 80 MG/ML VIAL. ONE
--- NOTE | 2021-03-21 10:48 | PDOC ---
Progress Note - Pain Clinic Date of Service: DOS: DATE: 03/21/21 TIME: 10:44 Diagnosis: Dx: Lumbar radiculopathy with lumbar degenerative disc disease History or Present Illness: HPI: 60-year-old female returns following lumbar epidural steroid injection patient reports 85% improvement in the low back and right lower extremity. Patient has been increase activities greater distance walking doing household activities work activities travel with greater ease and comfort patient reports she is sleeping better at night sleeping and without disturbance from her pain. Patient reports she is decreased the amount of oral analgesics she has been using as well [id number]. Patient reports she has been increase activity fairly significantly and been traveling a lot for work and is tolerating it fairly well patient reports still 85% improvement even now after 2 weeks following her injection patient reports her pain to 3 no scale 10 at its worst 2-3 on average 1 its least is a 1 today patient reports no bowel or bladder incontinence scribes the pain is tight in the low back burning in the right leg and hip stabbing in the right leg on and off in intensity radiating the posterior gluteus lateral thigh anterior thigh medial thigh medial lower leg but the leg is doing much better than the hip and back at this time. Patient continues to do stretching and strength exercises as well as walking daily. Duties traveling as well. Patient reports no bowel or bladder incontinence. Physical Exam: VS: Blood pressure is 140/96 pulse 90 respirations 16 temperature 98.2 F height is 5 feet 10 inches weight is 235 pounds PE: PHYSICAL EXAMINATION: GENERAL: The patient is awake, alert, oriented, appropriate, very pleasant in demeanor HEENT: Shows normocephalic, atraumatic. Extraocular movements are intact and symmetrical. Oral cavity: Mucous membranes moist and pink. Dentition is intact. NECK: Shows anterior throat supple without palpable lymphadenopathy noted. Swallow reflex symmetrical. CHEST: Shows normal on inspection. Breath sounds are clear bilaterally. HEART: Shows S1, S2 clear. No murmurs auscultated. ABDOMEN: Soft, nontender, nondistended. No palpable organomegaly is noted. BACK: Shows spine grossly in the midline. Normal-appearing cervical lordotic curvature. There is increased thoracic kyphosis, some flattening of the lumbar lordotic curvature. Lumbar paraspinous muscles show symmetrical on inspection, on palpation shows some moderate tenderness diffusely throughout the upper, middle and lower distribution of the paraspinous muscles, but without specific trigger points, without radiation of pain. The patient has good rotational motion of the lumbar spine, both laterally as well as extension and flexion without significant difficulty. No tenderness over the spinous processes, sacrum or sacroiliac regions. EXTREMITIES: Lower extremities show deep tendon reflexes 2+ in the patellar and tendo calcaneus tendons. Motor exam is 4 on a scale of 5 with right dorsiflexion, extension, quadriceps and hamstring flexion and 5/5 on the left. Peripheral pulses are 1+ posterior tibial. No peripheral edema is noted bilaterally. Lower extremities are warm and dry. SKIN: Shows warm and dry, good turgor. No edema. No sores, rashes or bruising throughout. Procedure: Procedure: Options discussed with patient. Patient's old chart was reviewed as her current medication regimen updated current view of systems updated today as well. We will preauthorize patient for a lumbar epidural steroid injection she did very well with the first injection 85% improvement still with radicular pain in the right side L4-5 dermatomal distribution but much improved. Patient continue with stretching strengthening exercises in the meantime as well as oral analgesics, though reduced as necessary. Once approved, patient will return for translaminar approach L4-5 level lumbar epidural steroid injection with fluoroscopic guidance. Medication Injected: Med Injected: None Condition at Discharge: Condition at Discharge: Condition at discharge is stable. ALVIN SARAVIA MD Mar 21, 2021 10:48
== END | disposition home or self-care (01) ==
LOC: PNCL 09:59
PROVIDERS: ATTEND Anesthesiology
DX: M51.16 Intervertebral disc disorders with radiculopathy, lumbar region (principal); I10 Essential (primary) hypertension; J44.9 Chronic obstructive pulmonary disease, unspecified; K21.9 Gastro-esophageal reflux disease without esophagitis; E66.9 Obesity, unspecified; Z87.891 Personal history of nicotine dependence; Z90.49 Acquired absence of other specified parts of digestive tract; Z90.710 Acquired absence of both cervix and uterus; Z98.890 Other specified postprocedural states; Z79.899 Other long term (current) drug therapy
CPT/HCPCS: 99212; G0463

== ENCOUNTER → 2021-04-09 | Outpatient (CLI) | payer BC ==
[2019-05-23 12:00] VITALS: BP 118/72
[~2021-04-09] MED LIST changes: +IOHEXOL 180 MG/ML 10 ML VIAL. ONE; +methylPREDNISolone ACETATE 40 MG/ML VIAL. ONE; +methylPREDNISolone ACETATE 80 MG/ML VIAL. ONE
--- NOTE | 2021-04-09 11:28 | PDOC ---
Progress Note - Pain Clinic Date of Service: DOS: DATE: 04/09/21 TIME: 11:25 Diagnosis: Dx: Lumbar radiculopathy with lumbar degenerative disc disease History or Present Illness: HPI: 60-year-old female returns for follow-up status post lumbar epidural steroid injection x1 March 08, 2021. Patient did very well with about 85% improvement in the low back and now pain returning in the low back and the right lower extremity patient reports that she is having occasional pain now on the left lower extremity as well with prolonged sitting and riding in the car. Patient has been very busy with work and traveling to [place] as well as [place] and [facility] several times in the last few weeks which began to exacerbate the pain to moderate extent that and is increasing the pain now on the left side of the low back and leg as well in the posterior gluteus posterior reports her pain is still worse on the right side posterior gluteus posterior lateral thigh lateral anterior thigh patient scribes aching and tight shooting burning in both the legs stabbing at times in the back can be constant with standing or walking generally better with sitting but with prolonged sitting it does increase the pain patient reports better at night with laying down generally does not awaken her from sleep. Patient rates her pain as a 4 on a scale of 10 at its worst 2 on his average and 1 at its least and is a 2 today. Patient reports no bowel or bladder incontinence,, no motor deficits but significant fatigability of bilateral lower extremities especially on the right side. Physical Exam: VS: Blood pressure is 131/81 pulse 76 respirations 18 temperature 97.6 F height is 5 feet 10 inches weight is 234 pounds PE: PHYSICAL EXAMINATION: GENERAL: The patient is awake, alert, oriented, appropriate, very pleasant and demeanor HEENT: Shows normocephalic, atraumatic. Extraocular movements are intact and symmetrical. Oral cavity: Mucous membranes moist and pink. Dentition is intact. NECK: Shows anterior throat supple without palpable lymphadenopathy noted. Swallow reflex symmetrical. CHEST: Shows normal on inspection. Breath sounds are clear bilaterally. HEART: Shows S1, S2 clear. No murmurs auscultated. ABDOMEN: Soft, nontender, nondistended. No palpable organomegaly is noted. BACK: Shows spine grossly in the midline. Normal-appearing cervical lordotic curvature. There is mildly increased thoracic kyphosis, some flattening of the lumbar lordotic curvature. Lumbar paraspinous muscles show symmetrical on inspection, on palpation shows some moderate tenderness diffusely throughout the upper, middle and lower distribution of the paraspinous muscles without specific trigger points, without radiation of pain. The patient has good rotational motion of the lumbar spine, both laterally as well as extension and flexion without significant difficulty. EXTREMITIES: Lower extremities show deep tendon reflexes 2+ in the patellar and tendo calcaneus tendons. Motor exam is 4 on a scale of 5 with right dorsiflexion, extension, quadriceps and hamstring flexion and 5/5 on the left. Peripheral pulses are 1+ posterior tibial. No peripheral edema is noted bilaterally. Lower extremities are warm and dry to touch, equal in color and appearance. SKIN: Shows warm and dry, good turgor. No edema. No sores, rashes or bruising throughout. Procedure: Procedure: Options were discussed with the patient. Patient's old chart was reviewed as her current medication regimen updated current review of systems updated today as well. We will proceed with a lumbar epidural steroid injection today with fluoroscopic guidance. Risks were discussed including but not limited to: Bleeding, infection, possibility of epidural hematoma and subsequent neurologic al compromise, dural puncture, headaches, spinal cord and/or nerve damage, side effects of steroid medication, and poor results regarding pain control. Patient understands and wished to proceed. Patient return to the clinic in approximate 2 weeks for follow-up, was counseled as to return appointment, activity level, and side effect to be aware of. Medication Injected: Med Injected: Procedure is lumbar epidural steroid injection under local anesthetic using sterile prep and drape at the L4-5 level using C-arm fluoroscopic guidance in both AP and lateral views medications injected is 120 mg Depo-Medrol +10mL preservative-free normal saline and 2 mL contrast- condition at discharge is stable patient tolerated procedure well had no complications. Condition at Discharge: Condition at Discharge: Condition at discharge stable, patient tolerated the procedure well and had no complications. ALVIN SARAVIA MD Apr 09, 2021 11:28
--- NOTE | 2021-04-09 11:29 | PDOC4 ---
Procedure Note: ICD 10 Code: ICD 10 Code: M54.16 M51.36 Procedure Note: Patient was consented for lumbar epidural steroid injection with fluoroscopic guidance. Risks were discussed including but not limited to: Bleeding, infection, possibility of epidural hematoma and subsequent neurological compromise, dural puncture, headaches, spinal cord and/or nerve damage, side effects of steroid medication, and poor results regarding pain control. Patient understands and wished to proceed. Procedure is lumbar epidural steroid injection under local anesthetic using sterile prep and drape at the L4-5 level using C-arm fluoroscopic guidance in both AP and lateral views medications injected is 120 mg Depo-Medrol +10mL preservative-free normal saline and 2 mL contrast- condition at discharge is stable patient tolerated procedure well had no complications. ALVIN SARAVIA MD Apr 09, 2021 11:29
== END | disposition home or self-care (01) ==
LOC: PNCL 10:00
PROVIDERS: ATTEND Anesthesiology
DX: M51.16 Intervertebral disc disorders with radiculopathy, lumbar region (principal); I10 Essential (primary) hypertension; J44.9 Chronic obstructive pulmonary disease, unspecified; K21.9 Gastro-esophageal reflux disease without esophagitis; E66.9 Obesity, unspecified; Z87.891 Personal history of nicotine dependence; Z79.899 Other long term (current) drug therapy; Z90.49 Acquired absence of other specified parts of digestive tract; Z98.890 Other specified postprocedural states; Z72.89 Other problems related to lifestyle
CPT/HCPCS: 62323; J1030; J1040; Q9965

== ENCOUNTER → 2021-05-01 | Outpatient (CLI) | payer BC ==
[2019-05-23 12:00] VITALS: BP 118/72
[~2021-05-01] MED LIST changes: -IOHEXOL 180 MG/ML 10 ML VIAL. ONE; -methylPREDNISolone ACETATE 40 MG/ML VIAL. ONE; -methylPREDNISolone ACETATE 80 MG/ML VIAL. ONE
--- NOTE | 2021-05-01 13:43 | PDOC ---
Progress Note - Pain Clinic Date of Service: DOS: DATE: 05/01/21 TIME: 13:39 Diagnosis: Dx: Lumbar radiculopathy with lumbar degenerative disease History or Present Illness: HPI: 60-year-old female returns for follow-up status post lumbar epidural steroid injection on April 09, 2021 patient reports did very well about 90% improvement in her right low back and right lower extremity pain patient reports the pain is still present but very reduced in severity patient reports worse with changing positions getting up and down or if she is getting up from a stooping position or crawling position which she is required to do with her work. Patient reports much better however no motor or sensory deficits no bowel or bladder incontinence rates her pain as a 2 on scale 10 is worst and average over the past week and 1 at its least is a 1 today. Patient reports still some pain radiating into the right lower extremity but again significantly reduced. Patient reports no motor deficits but some fatigue with the right lower extremity with activity walking standing changing positions as well as driving in the car for more than about 30 minutes. Patient reports she not only increasing her activity at work but also at home doing household activities with greater ease and comfort walking greater distances tolerating car rides for longer time periods as well as sleeping much better at night. Patient is no longer taking oral analgesics as she was taking tramadol and ibuprofen as limited both of these at this time completely. Physical Exam: VS: Blood pressure is 124/77 pulse 78 respirations 18 temperature 90.5 F height is 5 feet 10 inches weight is 235 pounds. PE: PHYSICAL EXAMINATION: GENERAL: The patient is awake, alert, oriented, appropriate, very pleasant in demeanor HEENT: Shows normocephalic, atraumatic. Extraocular movements are intact and symmetrical. Oral cavity: Mucous membranes moist and pink. Dentition is intact. NECK: Shows anterior throat supple without palpable lymphadenopathy noted. Swallow reflex symmetrical. CHEST: Shows normal on inspection. Breath sounds are clear bilaterally, no rales or rhonchi. HEART: Shows S1, S2 clear. No murmurs auscultated. ABDOMEN: Soft, nontender, nondistended. No palpable organomegaly is noted. BACK: Shows spine grossly in the midline. Normal-appearing cervical lordotic curvature. There is mildly increased thoracic kyphosis, some flattening of the lumbar lordotic curvature. Lumbar paraspinous muscles show symmetrical on inspection, on palpation shows some moderate tenderness diffusely throughout the upper, middle and lower distribution of the paraspinous muscles, but without specific trigger points, without radiation of pain. The patient has good rotational motion of the lumbar spine, both laterally as well as extension and flexion without significant difficulty. No tenderness over the spinous processes, sacrum or sacroiliac regions. EXTREMITIES: Lower extremities show deep tendon reflexes 2+ in the patellar and tendo calcaneus tendons. Motor exam is 4 on a scale of 5 with right dorsiflexion, extension, quadriceps and hamstring flexion and 5/5 on the left. Peripheral pulses are 1+ posterior tibial. No peripheral edema is noted bilaterally. Lower extremities are warm and dry to touch, equal in color and appearance. SKIN: Shows warm and dry, good turgor. No edema. No sores, rashes or bruising throughout. Procedure: Procedure: Options were discussed with patient. Patient's old chart was reviewed as her current medication regimen updated review of systems updated today as well. We will preauthorize patient for a additional lumbar epidural steroid injection is doing very well with good reduction in pain but 90% for 3-1/2 weeks with the pain returning in a radicular fashion at L4-5 dermatomal distribution in the right lower extremity. Meantime, patient will continue with stretching strength exercises as currently as well as active activity and exercise as tolerated and oral analgesics if necessary. Once approved, patient will return for translaminar approach L4-5 level lumbar epidural steroid injection with fluoroscopic guidance. Medication Injected: Med Injected: None Condition at Discharge: Condition at Discharge: Condition at discharge is stable. ALVIN SARAVIA MD May 01, 2021 13:43
== END | disposition home or self-care (01) ==
LOC: PNCL 13:06
PROVIDERS: ATTEND Anesthesiology
DX: M51.16 Intervertebral disc disorders with radiculopathy, lumbar region (principal); I10 Essential (primary) hypertension; J44.9 Chronic obstructive pulmonary disease, unspecified; K21.9 Gastro-esophageal reflux disease without esophagitis; E66.9 Obesity, unspecified; Z90.49 Acquired absence of other specified parts of digestive tract; Z90.710 Acquired absence of both cervix and uterus; Z98.890 Other specified postprocedural states; Z79.899 Other long term (current) drug therapy
CPT/HCPCS: 99212; G0463

== ENCOUNTER → 2021-06-21 | Outpatient (CLI) | payer BC ==
[2019-05-23 12:00] VITALS: BP 118/72
[~2021-06-21] MED LIST changes: +DEXAMETHASONE PRES.FREE 10 MG/ML VIAL. ONE; +IOHEXOL 180 MG/ML 10 ML VIAL. ONE
--- NOTE | 2021-06-21 09:13 | PDOC4 ---
Procedure Note: ICD 10 Code: ICD 10 Code: M54.16 M51.36 Procedure Note: Patient was consented for lumbar epidural steroid injection with fluoroscopic guidance. Risks were discussed including but not limited to: Bleeding, infection, possibility of epidural hematoma and subsequent neurological compromise, dural puncture, headaches, spinal cord and/or nerve damage, side effects of steroid medication, and poor results regarding pain control. Patient understands and wished to proceed. Procedure is lumbar epidural steroid injection under local anesthetic using sterile prep and drape at the L4-5 level using C-arm fluoroscopic guidance in both AP and lateral views medications injected is 20 mg dexamethasone +10mL preservative-free normal saline and 2 mL contrast- condition at discharge is stable patient tolerated procedure well had no complications. ALVIN SARAVIA MD Jun 21, 2021 09:13
--- NOTE | 2021-06-21 09:13 | PDOC ---
Progress Note - Pain Clinic Date of Service: DOS: DATE: 06/21/21 TIME: 09:10 Diagnosis: Dx: Lumbar radiculopathy with lumbar degenerative disc disease History or Present Illness: HPI: 60-year-old female returns for follow-up status post lumbar epidural steroid injection x2 with about 90% improvement in the low back and right lower extremity pain patient reports pain is been returning down the low back rating the right hip posterior gluteus posterior thigh lateral thigh into thigh medial thigh medial lower leg described as aching and tight in the back radiating shooting burning in the hip patient rates as 8 on scale 10 is worse over the past week 5-6 on average and a 4 at its least and is a 5 today. Patient reports no loss of motor function with significant fatigability the right leg and is walking with a noticeable limp today with some significant fatigability on the right leg but without motor loss. Patient reports no bowel or bladder incontinence. Physical Exam: VS: Blood pressure is 129/82 pulse 94 respirations 16 temperature 90.1 F height 5 foot 10 inches weight is 235 pounds. PE: PHYSICAL EXAMINATION: GENERAL: The patient is awake, alert, oriented, appropriate, very pleasant in demeanor HEENT: Shows normocephalic, atraumatic. Extraocular movements are intact and symmetrical. Oral cavity: Mucous membranes moist and pink. Dentition is i ntact. NECK: Shows anterior throat supple without palpable lymphadenopathy noted. Swallow reflex symmetrical. CHEST: Shows normal on inspection. Breath sounds are clear bilaterally. HEART: Shows S1, S2 clear. No murmurs auscultated. ABDOMEN: Soft, nontender, nondistended. No palpable organomegaly is noted. BACK: Shows spine grossly in the midline. Normal-appearing cervical lordotic curvature. There is mildly increased thoracic kyphosis, some flattening of the lumbar lordotic curvature. Lumbar paraspinous muscles show symmetrical on inspection, on palpation shows some moderate tenderness diffusely throughout the upper, middle and lower distribution of the paraspinous muscles without specific trigger points, without radiation of pain. The patient has good rotational motion of the lumbar spine, both laterally as well as extension and flexion without significant difficulty. EXTREMITIES: Lower extremities show deep tendon reflexes 2+ in the patellar and tendo calcaneus tendons. Motor exam is 4 on a scale of 5 with right dorsiflexion, extension, quadriceps and hamstring flexion and 5/5 on the left. Peripheral pulses are 1+ posterior tibial. Lower extremities are warm and dry to touch, equal in color and appearance. SKIN: Shows warm and dry, good turgor. No edema. No sores, rashes or bruising throughout. Procedure: Procedure: Options were discussed with the patient. Patient's chart was reviewed as her current medication regimen updated current review of systems updated today as well. We will proceed with a lumbar epidural steroid injection today with fluoroscopic guidance. Risks were discussed including but not limited to: Bleeding, infection, possibility of epidural hematoma and subsequent neurological compromise, dural puncture, headaches, spinal cord and/or nerve damage, side effects of steroid medication, and poor results regarding pain con trol. Patient understands and wished to proceed. Patient will return to the clinic in approximately 2 weeks for follow-up, was counseled as to return appointment, activity level, and side effect to be aware of. Medication Injected: Med Injected: Procedure is lumbar epidural steroid injection under local anesthetic using sterile prep and drape at the L4-5 level using C-arm fluoroscopic guidance in both AP and lateral views medications injected is 20 mg dexamethasone +10mL p reservative-free normal saline and 2 mL contrast- condition at discharge is stable patient tolerated procedure well had no complications. Condition at Discharge: Condition at Discharge: Condition at discharge is stable, patient tolerated the procedure well and had no complications. ALVIN SARAVIA MD Jun 21, 2021 09:13
== END | disposition home or self-care (01) ==
LOC: PNCL 08:14
PROVIDERS: ATTEND Anesthesiology
DX: M51.16 Intervertebral disc disorders with radiculopathy, lumbar region (principal); I10 Essential (primary) hypertension; J44.9 Chronic obstructive pulmonary disease, unspecified; K21.9 Gastro-esophageal reflux disease without esophagitis; E66.9 Obesity, unspecified; Z87.891 Personal history of nicotine dependence; Z90.49 Acquired absence of other specified parts of digestive tract; Z98.890 Other specified postprocedural states; Z79.899 Other long term (current) drug therapy
CPT/HCPCS: 62323; J1100; Q9965

== ENCOUNTER → 2021-07-26 | Outpatient (CLI) | payer BC ==
[2019-05-23 12:00] VITALS: BP 118/72
[~2021-07-26] MED LIST changes: +BUPIVACAINE MPF 0.25% 10 ML VIAL. ONE
--- NOTE | 2021-07-26 13:15 | PDOC ---
Progress Note - Pain Clinic Date of Service: DOS: DATE: 07/26/21 TIME: 13:10 Diagnosis: Dx: Lumbar radiculopathy with lumbar degenerative disc disease History or Present Illness: HPI: 61-year-old female returns for follow-up status post lumbar epidural steroid injection with improvements by about 90% initially, with pain returning fairly quickly after about 1 week into the low back and the right lower extremity posterior gluteus posterior lateral thigh lateral anterior thigh anteromedial thigh medial knee and lower leg. Patient reports worse with walking standing changing positions putting all her weight on her right leg disturbing sleep occasionally but not every night patient reports her pain is a 9 on scale 10 is worse over the past week 7 on average 5 to [place] is a 7 today patient describes aching tight in the back shooting in the right leg tingling burning radiating and more constant in the lateral and anterior hip. Patient reports no loss of motor function no bowel or bladder incontinence. Physical Exam: VS: Blood pressure is 135/84 pulse 81 respirations 18 temperature 98.1 F weight is 234 pounds. PE: PHYSICAL EXAMINATION: GENERAL: The patient is awake, alert, oriented, appropriate, very pleasant in demeanor HEENT: Shows normocephalic, atraumatic. Extraocular movements are intact and symmetrical. Oral cavity: Mucous membranes moist and pink. Dentition is intact. NECK: Shows anterior throat supple without palpable lymphadenopathy noted. Swallow reflex symmetrical. CHEST: Shows normal on inspection. Breath sounds are clear bilaterally. HEART: Shows S1, S2 clear. No murmurs auscultated. ABDOMEN: Soft, nontender, nondistended. No palpable organomegaly is noted. BACK: Shows spine grossly in the midline. Normal-appearing cervical lordotic curvature. There is slightly increased thoracic kyphosis, some mild flattening of the lumbar lordotic curvature. Lumbar paraspinous muscles show symmetrical on inspection, on palpation shows some moderate tenderness diffusely throughout the upper, middle and lower distribution of the paraspinous muscles, but without specific trigger points, without radiation of pain. The patient has good rotational motion of the lumbar spine, both laterally as well as extension and flexion without significant difficulty. EXTREMITIES: Lower extremities show deep tendon reflexes 2 in the patellar and tendo calcaneus tendons. Motor exam is 4 on a scale of 5 with right dorsiflexion, extension, quadriceps and hamstring flexion and 5/5 on the left. Peripheral pulses are 1+ posterior tibial. No peripheral edema is noted bilaterally. Lower extremities are warm and dry to touch, equal in color and appearance. SKIN: Shows warm and dry, good turgor. No edema. No sores, rashes or bruising throughout. Procedure: Procedure: Options were discussed the patient. Patient chart was reviewed as her current medication regimen updated, and current review of systems updated today as well. We will proceed with a right-sided L4-5 transforaminal epidural steroid injection today with fluoroscopic guidance. Risks were discussed including but not limited to: Bleeding, infection, possibility of epidural hematoma and subsequent neurological compromise, dural puncture, headaches, spinal cord and/or nerve damage, potential injection of vertebral artery to the level and permanent ischemic damage, side effects of steroid medication, and poor results regarding pain control. Patient understands and wished to proceed. Patient will return to the clinic in approximate 2 weeks for follow-up, was counseled as to return appointment, activity level, and side effect to be aware of. Medication Injected: Med Injected: Under sterile prep and drape patient was placed in prone position using C-arm fluoroscopic guidance to identify the L4-5 distribution oblique and slightly cephalad angled C arm. The right L4-5 target was identified and using lidocaine for anesthetizing the skin 22-gauge Nicole pencil point needle was then used to enter the skin and into the subcutaneous tissues using direct C-arm fluoroscopic guidance to guide the needle into the transforaminal aspect of the right L4-5 vertebrae this was confirmed with lateral views showing the needle tip in the superior aspect of the paravertebral region. Aspiration was noted to be negative, -1.5 cc of contrast was then injected with good spread both medially into the epidural space as well as laterally along the nerve root without uptake and without distribution and uptake on digital subtraction. At this time, a solution containing 2 cc of 0.25% bupivacaine and 20 mg dexamethasone was then injected. Needle was withdrawn and sterile bandage was applied. Patient tolerated procedure well had no immediate complications Condition at Discharge: Condition at Discharge: Condition at discharge stable, paced tolerated the procedure well and had no complications. ALVIN SARAVIA MD Jul 26, 2021 13:15
== END | disposition home or self-care (01) ==
LOC: PNCL 11:20
PROVIDERS: ATTEND Anesthesiology
DX: M51.16 Intervertebral disc disorders with radiculopathy, lumbar region (principal); I10 Essential (primary) hypertension; J44.9 Chronic obstructive pulmonary disease, unspecified; K21.9 Gastro-esophageal reflux disease without esophagitis; M19.90 Unspecified osteoarthritis, unspecified site; Z87.891 Personal history of nicotine dependence; Z90.49 Acquired absence of other specified parts of digestive tract; Z90.710 Acquired absence of both cervix and uterus; Z98.890 Other specified postprocedural states; Z79.899 Other long term (current) drug therapy
CPT/HCPCS: 64483; J1100; J3490; Q9965